=== PATIENT | male | born 1990 | race Caucasian/White ===

== ENCOUNTER 2022-12-16 13:24 | Emergency (ER) | payer SELFPAY ==
[2022-12-16] MEDS ORDERED: NA CHLORIDE 0.9% 1,000 ML ONE ×3 (13:48→16:54)
[2022-12-16] MEDS ORDERED: ONDANSETRON 4 MG/2 ML VIAL ONE (13:48)
[2022-12-16] MEDS ORDERED: MORPHINE 4 MG/ML SYR ONE ×2 (13:48→16:54)
[2022-12-16 14:00] LABS: Absolute Lymphocytes (CBC) 0.7 K/uL (0.7-4.9); Lymphocytes % 7.4 % (15.3-44.8); MCV 92.5 fL (80-100); MPV 7.5 fL (7.6-11.3); RBC Red Blood Cell Count 4.97 M/uL (4.33-5.43)
[2022-12-16 14:18] LABS: Albumin 4.8 g/dL (3.4-5.0); Bilirubin Total 1.4 mg/dL (0.2-1.0); Protein, Total 8.7 g/dL (6.4-8.2)
--- NOTE | 2022-12-16 15:27 | RAD REPORT ---
EXAM DESCRIPTION: CT - Abdomen Pelvis Wo Contrast - 12/16/2022 3:07 pm CLINICAL HISTORY: Abdominal pain COMPARISON: None TECHNIQUE: Computed axial tomography of the abdomen and pelvis was obtained. IV and oral contrast we re not requested. All CT scans are performed using dose optimization technique as appropriate and may include automated exposure control or mA/KV adjustment according to patient size. FINDINGS: The evaluation of solid organs, vessels and bowel is limited secondary to the lack of con trast administration. Fatty liver Spleen, pancreas, adrenals and kidneys appear grossly normal. The appendix is normal. There is no evidence of diverticulitis. Small to moderate bilateral inguinal hernias contain fat IMPRESSION: Fatty liver
[2022-12-16 16:24] LABS: Arterial Blood Carboxyhemoglob 1.6 % (0-1.5); Blood Gas Oxyhemoglobin 86.7 % (94-97); Blood O2 Saturation 89.4 % (92-98.5)
[2022-12-16 16:34] LABS: Potassium 4.6 mEq/L (3.5-5.1)
[2022-12-16 16:50] LABS: Blood Morphology Comment NOT SEEN (NOT SEEN); Platelet Estimate ADEQ; White Blood Cell Scan OK (OK)
[2022-12-16] MEDS ORDERED: PANTOPRAZOLE 40 MG INJ ONE (17:13)
--- NOTE | 2022-12-16 17:23 | RAD REPORT ---
EXAM DESCRIPTION: CT - Angio Aorta For Dissection - 12/16/2022 5:04 pm CLINICAL HISTORY: . Chest and abd pain COMPARISON: December 16, 2022 CT TECHNIQUE: Computed tomography angiography of the chest, abdomen pelvis were obtained. 122 cc Isovue 370 was administered intravenously. Coronal and sagittal reconstruction were performed. MIP 3D reconstruction was performed All CT scans are performed using dose optimization technique as appropriate and may include automated exposure control or mA/KV adjustment according to patient size. FINDINGS: An aortic dissection is not seen. An aortic aneurysm is not displayed. The celiac, SMA and DENA are patent . A lung consolidation is not present. A pericardial effusion is not seen. A pleural effusion is not no tello. Fatty liver The Spleen, pancreas,adrenals and kidneys demonstrate no significant abnormality. There no evidence diverticulitis. Small to moderate bilateral inguinal hernias contain fat. Normal a ppendix IMPRESSION: Negative for an aortic dissection.
[2022-12-16 17:54] LABS: Barbiturates NEGATIVE (NEGATIVE); Benzodiazepines NEGATIVE (NEGATIVE); Cocaine NEGATIVE (NEGATIVE); METHAMPHETAM NEGATIVE (NEGATIVE); Methadone NEGATIVE (NEGATIVE); Opiates POSITIVE (NEGATIVE); Phencyclidine NEGATIVE (NEGATIVE); THC Cannibis NEGATIVE (NEGATIVE)
[2022-12-16 18:07] LABS: Specific Gravity > 1.030 (1.005-1.030); Urine Bacteria None Seen /HPF (<20); Urine Bilirubin NEGATIVE (Negative); Urine Blood Negative (Negative); Urine Clarity Clear (Clear); Urine Color Light-Yellow (Yellow); Urine Glucose NEGATIVE (Negative); Urine Mucus Slight /HPF (None Seen); Urine Protein TRACE (Negative); Urine RBC <5 /HPF (None Seen); Urine Urobilinogen Normal (Normal); Urine pH 6.5 (5.0-7.0)
--- NOTE | 2022-12-16 20:22 | EDPHYS ---
Physician Documentation [facility] Name: Hero Velasquez Age: 32 yrs Sex: Male : 1990 Arrival Date: 12/16/2022 Time: 13:24 Bed 9 Private MD: ED Physician Riley Webster HPI: 12/16 15:50 This 32 yrs old Male presents to ER via Wheelchair with complaints of bs3 Abdominal Pain, Nausea/Vomiting. 15:50 32-year-old male presents with left upper abdominal pain he notes intermittent pain for bs3 the past several weeks which she is ignored however today was very strong and while he was at work he could not ignore and therefore came in history is limited as the patient is actively retching and dry heaving. Historical: - Allergies: 13:33 No Known Allergies; iw - PMHx: 13:33 None; iw - PSHx: 13:33 None; iw ROS: 15:50 Constitutional: Negative for fever, chills bs3 15:50 All other systems are negative. Exam: 15:50 Constitutional: Patient appears in moderate distress he is actively dry heaving he is bs3 spitting up clear sputum Head/Face: Normocephalic, atraumatic. Eyes: Pupils equal round and reactive to light, extra-ocular motions intact. Lids and lashes normal. ENT: mmm, no posterior phyarngeal erythema Neck: Trachea midline, no thyromegaly, no neck stiffness Chest/axilla: Normal chest wall appearance and motion. Nontender with no deformity. No lesions are appreciated. Cardiovascular: Tachycardic no murmur Respiratory: Lungs have equal breath sounds bilaterally, clear to auscultation, no respiratory distress Abdomen/GI: Soft, non-tender, no rebound or guarding Skin: Warm, dry with normal turgor. Normal color with no rashes, no lesions, and no evidence of cellulitis. MS/ Extremity: Pulses equal, no cyanosis. Neurovascular intact. Full, normal range of motion. Neuro: Awake and alert, GCS 15, oriented to person, place, time, and situation. Cranial nerves II-XII grossly intact. Motor strength 5/5 in all extremities. Sensory grossly intact. Psych: Awake, alert, with orientation to person, place and time. Behavior, mood, and affect are within normal limits. Vital Signs: 13:32 BP 144 / 93; Pulse 127; Resp 24 S; Pulse Ox 100% on R/A; Pain 10/10; iw 17:53 BP 160 / 93; Pulse 96; Resp 20; Temp 98; Pulse Ox 96% ; bp 20:00 BP 150 / 89; Pulse 104; Resp 17; Pulse Ox 95% ; Pain 5/10; jb4 13:32 Pain Scale: Adult iw 20:00 Pain Scale: Adult jb4 MDM: 13:31 Patient medically screened. bs3 15:50 Differential diagnosis: Nonspecific abd pain, gastritis, pancreatitis, viral bs3 gastroenteritis, gastroenteritis. Data reviewed: vital signs, nurses notes. ED course: We will check labs we will hydrate we will reassess she is dry heaving Labs are notable for anion gap likely related to vomiting and a contraction alkalosis we will get a VBG will reassess He is feeling much better on reassessment heart rate improved CT nondiagnostic Labs all normal essentially except for the anion gap we will repeat basic metabolic profile. 16:52 ED course: pts initial workup non diagnostic, but he then had another episode of severe bs3 pain, became hypertensive and tachycardic, pt stating severe pain, will r/o dissection, tx pain, unclear etiology of pain. vbg showed alkalosis, likely secondary to increased resp drive. . 17:02 ED course: EKG during the second episode at 1639 sinus tachycardia rightward axis no ST bs3 elevations QTc 474 rate is 120 as interpreted by myself. 20:18 ED course: pt reassessed, feeling better, completely non diagnostic workup, possible bs3 related to his recent binge drinking, advised gi f/u. 12/16 13:38 Order name: CBC with Diff; Complete Time: 17:01 iw 12/16 13:38 Order name: CMP; Complete Time: 14:54 iw 12/16 13:38 Order name: Lipase; Complete Time: 14:54 iw 12/16 13:45 Order name: Urine Drug Screen; Complete Time: 18:36 bs3 12/16 14:56 Order name: ABG: vbg; Complete Time: 17:42 bs3 12/16 14:56 Order name: BMP; Complete Time: 17:01 bs3 12/16 16:50 Order name: CBC Smear Scan; Complete Time: 17:01 EDMS 12/16 17:01 Order name: Troponin High Sensitivity; Complete Time: 20:18 bs3 12/16 17:48 Order name: Urinalysis w/ reflexes; Complete Time: 18:36 bs3 12/16 14:54 Order name: CT Abd/Pelvis - Without Contrast; Complete Time: 15:45 bs3 12/16 16:43 Order name: CT Aorta for Dissection; Complete Time: 17:42 bs3 12/16 13:38 Order name: IV Saline Lock; Complete Time: 13:58 iw 12/16 13:38 Order name: Labs collected and sent; Complete Time: 13:58 iw 12/16 13:45 Order name: Glucose Level; Complete Time: 13:58 bs3 Administered Medications: 13:58 Drug: NS 0.9% IV 1000 ml Route: IV; Rate: 1 bolus; Site: right antecubital; iw 13:58 Drug: Ondansetron IVP 4 mg Route: IVP; Site: right antecubital; iw 13:58 Drug: morphine IVP or IV 4 mg Route: IVP; Infused Over: 4 mins; Site: right antecubital;iw 14:07 Drug: NS 0.9% IV 1000 ml Route: IV; Rate: 1000 ml; Site: right antecubital; iw 15:30 Drug: NS 0.9% IV 1000 ml Route: IV; Rate: 1000 ml; Site: right antecubital; kb3 16:54 Drug: morphine IVP or IV 4 mg Route: IVP; Infused Over: 4 mins; Site: right antecubital;hb 17:10 Drug: NS 0.9% IV 500 ml Route: IV; Rate: bolus; Site: right antecubital; kb3 17:10 Drug: Pantoprazole IVP 40 mg Route: IVP; Site: right antecubital; kb3 Disposition Summary: 12/16/22 20:21 Discharge Ordered Location: Home bs3 Problem: new bs3 Symptoms: have improved bs3 Condition: Stable bs3 Diagnosis - Vomiting bs3 - Abdominal pain, Generalized bs3 Followup: bs3 - With: Private Physician - When: - Reason: Re-evaluation by your physician Discharge Instructions: - Discharge Summary Sheet bs3 - Abdominal Pain, Adult bs3 Forms: - Medication Reconciliation Form bs3 - Thank You Letter bs3 - Antibiotic Education bs3 - Prescription Opioid Use bs3 Prescriptions: - Carafate 1 gram Oral Tablet - take 1 tablet by ORAL route 4 times per day take on an empty stomach, beginning bs3 on waking and last dose at bedtime; 30 tablet; Refills: 0, Product Selection Permitted - Protonix 40 mg Oral Tablet - take 1 tablet by ORAL route once daily; 30 tablet; Refills: 0, Product bs3 Selection Permitted Signatures: Dispatcher [employer] Elida Ramon RN RN Charity Cordova RN RN Asia Lam RN RN kb3 Riley Webster MD MD bs3 Corrections: (The following items were deleted from the chart) 17:55 17:49 Urinalysis W/Microscopic+U.LAB.BRZ ordered. EDKS EDKS
--- NOTE | 2022-12-16 20:22 | ER ---
Nurse's Notes [facility] Name: Hero Velasquez Age: 32 yrs Sex: Male : 1990 Arrival Date: 12/16/2022 Time: 13:24 Bed 9 Private MD: Diagnosis: Vomiting;Abdominal pain, Generalized Presentation: 12/16 13:32 Chief complaint: Patient states: upper abd pain X 1 month , today pain is severe, iw started vomiting at 11 am. Ebola Screen: Patient negative for fever greater than or equal to 101.5 degrees Fahrenheit, and additional compatible Ebola Virus Disease symptoms Patient denies exposure to infectious person. Patient denies travel to an Ebola-affected area in the 21 days before illness onset. No symptoms or risks identified at this time. Initial Sepsis Screen: Does the patient meet any 2 criteria? RR > 20 per min. Does the patient have a suspected source of infection? No. Patient's initial sepsis screen is negative. Risk Assessment: Do you want to hurt yourself or someone else? Patient reports no desire to harm self or others. Onset of symptoms was December 16, 2022. 13:32 Method Of Arrival: Wheelchair iw 13:32 Acuity: SIL 2 iw Triage Assessment: 14:00 General: Appears distressed, Behavior is cooperative, appropriate for age, anxious. bp Pain: Complains of pain in abdomen. EENT: No deficits noted. Neuro: No deficits noted. Cardiovascular: No deficits noted. Respiratory: No deficits noted. GI: Reports nausea, vomiting. : No signs and/or symptoms were reported regarding the genitourinary system. Derm: No deficits noted. Musculoskeletal: No deficits noted. Historical: - Allergies: 13:33 No Known Allergies; iw - PMHx: 13:33 None; iw - PSHx: 13:33 None; iw Screenin:52 [facility] ED Fall Risk Assessment (Adult) History of falling in the last 3 months, bp including since admission No falls in past 3 months (0 pts). Abuse screen: Denies threats or abuse. Denies injuries from another. Nutritional screening: No deficits noted. Tuberculosis screening: No symptoms or risk factors identified. Assessment: 14:00 General: SEE TRIAGE NOTE. bp 19:00 Reassessment: Patient appears in no apparent distress at this time. Patient and/or jb4 family updated on plan of care and expected duration. Pain level reassessed. Patient is alert, oriented x 3, equal unlabored respirations, skin warm/dry/pink. 20:00 Reassessment: Patient appears in no apparent distress at this time. Patient and/or jb4 family updated on plan of care and expected duration. Pain level reassessed. Patient is alert, oriented x 3, equal unlabored respirations, skin warm/dry/pink. Patient states feeling better. Vital Signs: 13:32 BP 144 / 93; Pulse 127; Resp 24 S; Pulse Ox 100% on R/A; Pain 10/10; iw 17:53 BP 160 / 93; Pulse 96; Resp 20; Temp 98; Pulse Ox 96% ; bp 20:00 BP 150 / 89; Pulse 104; Resp 17; Pulse Ox 95% ; Pain 5/10; jb4 13:32 Pain Scale: Adult iw 20:00 Pain Scale: Adult jb4 ED Course: 13:28 Patient arrived in ED. iw 13:31 Riley Webster MD is Attending Physician. bs3 13:33 Triage completed. iw 13:33 Arm band placed on. iw 15:09 CT Abd/Pelvis - Without Contrast In Process Unspecified. EDMS 17:00 Inserted saline lock: 20 gauge in right antecubital area, using aseptic technique. bp Blood collected. 17:03 Charity Cordova, RN is Primary Nurse. hb 17:07 CT Aorta for Dissection In Process Unspecified. EDMS 17:48 Santy Jacinto, RN is Primary Nurse. bp 17:52 Patient has correct armband on for positive identification. Bed in low position. Call bp light in reach. Side rails up X2. 19:31 Lab(s) recollected, by me, sent to lab. jw7 20:38 No provider procedures requiring assistance completed. IV discontinued, intact, jb4 bleeding controlled, No redness/swelling at site. Pressure dressing applied. Administered Medications: 13:58 Drug: NS 0.9% IV 1000 ml Route: IV; Rate: 1 bolus; Site: right antecubital; iw 13:58 Drug: Ondansetron IVP 4 mg Route: IVP; Site: right antecubital; iw 13:58 Drug: morphine IVP or IV 4 mg Route: IVP; Infused Over: 4 mins; Site: right antecubital;iw 14:07 Drug: NS 0.9% IV 1000 ml Route: IV; Rate: 1000 ml; Site: right antecubital; iw 15:30 Drug: NS 0.9% IV 1000 ml Route: IV; Rate: 1000 ml; Site: right antecubital; kb3 16:54 Drug: morphine IVP or IV 4 mg Route: IVP; Infused Over: 4 mins; Site: right antecubital;hb 17:10 Drug: NS 0.9% IV 500 ml Route: IV; Rate: bolus; Site: right antecubital; kb3 17:10 Drug: Pantoprazole IVP 40 mg Route: IVP; Site: right antecubital; kb3 Outcome: 20:21 Discharge ordered by . bs3 20:38 Discharged to home ambulatory. jb4 20:38 Condition: stable 20:38 Discharge instructions given to patient, Instructed on discharge instructions, follow up and referral plans. medication usage, Demonstrated understanding of instructions, follow-up care, medications, Prescriptions given X 2. 20:39 Patient left the ED. jb4 Signatures: Dispatcher [employer] EDMS Elida Garcia RN LAURA Charity Cordova RN RN Ritesh Kelly RN RN jb4 Santy Jacinto RN Kayli Vanegas 7 Asia Lam, RN RN mitra3 Riley Webster MD MD bs3 Corrections: (The following items were deleted from the chart) 18:09 17:53 BP 160 / 93; Pulse 96bpm; Resp 20bpm; Pulse Ox 96%; bp bp
--- NOTE | 2022-12-17 14:38 | EKG ---
Test Date: 2022-12-16 Test Time: 13:45:52 Cinder Man: VIRGIL MEASUREMENT RESULTS: Intervals: Rate: 112 VT: 126 QRSD: 80 QT: 328 QTc: 447 [place]: P: 81 VT: 126 QRS: 94 T: 65 INTERPRETIVE STATEMENTS: Sinus tachycardia Possible Left atrial enlargement Rightward axis Borderline ECG No previous ECG available for comparison Electronically Signed On 12-17-22 14:36:44 CDT by Rocco Laird
--- NOTE | 2022-12-18 12:12 | EKG ---
Test Date: 2022-12-16 Test Time: 16:39:09 Bait Tier: HB MEASUREMENT RESULTS: Intervals: Rate: 120 UT: 130 QRSD: 82 QT: 336 QTc: 474 [place]: P: 69 UT: 130 QRS: 99 T: 35 INTERPRETIVE STATEMENTS: Sinus tachycardia Possible Left atrial enlargement Rightward axis Borderline ECG Compared to ECG 12/16/2022 13:45:52 No significant changes Electronically Signed On 12-18-22 12:06:26 CDT by Lucio Nowak
== END 2022-12-16 20:39 | disposition home or self-care (01) ==
LOC: ER 13:24
DX: R11.10 Vomiting, unspecified (principal); R10.84 Generalized abdominal pain
CPT/HCPCS: 36415; 71275; 74175; 74176; 80048; 80053; 80307; 81001; 82805; 83690; 84484; 85025; 93005; 96374; 96375; 99284; C9113; J2405; J7030; Q9967